=== PATIENT | female | born 1945 | race Caucasian/White ===

== ENCOUNTER 2018-01-04 10:29 | Day surgery (SDC) | payer MEDICARE, OTHER ==
[~2018-01-04] VITALS: Ht 167.6 cm; Wt 106.4 kg
[~2018-01-04 10:29] MED LIST: OMEP20ER PO; THYR60 PO; TRAM50 PO
== END 2018-01-04 11:52 | disposition home or self-care (01) ==
LOC: ORSCSDS 10:29
PROVIDERS: Anesthesiology
PROC: 3E0R33Z Introduction of Anti-inflammatory into Spinal Canal, Percutaneous Approach (ICD-10-PCS; principal; 2018-01-04 11:30)
DX: M51.16 Intervertebral disc disorders with radiculopathy, lumbar region (principal); Z79.899 Other long term (current) drug therapy
CPT/HCPCS: J1040

== ENCOUNTER → 2023-12-11 | Outpatient (CLI) | payer MEDICARE | END | disposition home or self-care (01) | LOC: LAB SHORT 10:24 | DX: R10.9 Unspecified abdominal pain (principal) | CPT/HCPCS: 87086 ==